=== PATIENT | female | born 1945 | race Caucasian/White ===

== ENCOUNTER 2023-04-25 09:19 | Outpatient (CLI) | payer BC ==
[~2023-04-25 09:19] MED LIST: AMI200T PO; AMLO10TA13 PO; APIX5TAB3 PO; LOSA100T58 PO; MELA1TAB52 PO; METO200T49 PO; THYROID MEDICATION PO
[2023-04-25 09:56] LABS: BASOPHILS # (AUTO) 0.1 X10'3 (0-0.2); BASOPHILS % (AUTO) 1.5 % (0-1); EOSINOPHILS # (AUTO) 0.2 X10'3 (0-0.9); EOSINOPHILS % (AUTO) 1.7 % (0-6); HEMATOCRIT 34.4 % (35.0-45.0); HEMOGLOBIN 11.4 g/dl (12.0-16.0); LYMPHOCYTES # (AUTO) 1.7 X10'3 (1.1-4.8); LYMPHOCYTES % (AUTO) 18.2 % (21-51); MEAN CORPUSCULAR HEMOGLOBIN 29.3 PG (27.0-31.0); MEAN CORPUSCULAR HGB CONC 33.2 g/dL (33.0-36.5); MEAN CORPUSCULAR VOLUME 88.3 FL (78-98); MONOCYTES # (AUTO) 0.8 X10'3 (0-0.9); MONOCYTES % (AUTO) 8.4 % (2-12); NEUTROPHILS # (AUTO) 6.6 X10'3 (1.8-7.7); NEUTROPHILS % (AUTO) 70.2 % (42-75); PLATELET COUNT 202 X10'3 (140-440); RED BLOOD COUNT 3.89 X10'6 (4.20-5.60); RED CELL DISTRIBUTION WIDTH 15.8 % (11.5-14.5); WHITE BLOOD COUNT 9.4 X10'3 (4.5-11.0)
[2023-04-25] MEDS ORDERED: iohexol 350MG/ML 100ml bottle IV ONE (10:03)
[2023-04-25 10:07] LABS: APTT 30 SECONDS (22-32); PROTHROMBIN TIME 10.9 SECONDS (9.0-12.0)
[2023-04-25 10:08] LABS: ALANINE AMINOTRANSFERASE 25 U/L (12-78); ALBUMIN 3.2 G/DL (3.4-5.0); ALBUMIN/GLOBULIN RATIO 0.8 (1.1-1.5); ALKALINE PHOSPHATASE 136 IU/L (46-116); ANION GAP 14 (8-16); ASPARTATE AMINO TRANSFERASE 19 U/L (10-37); BILIRUBIN,TOTAL 0.4 MG/DL (0.1-1.0); BLOOD UREA NITROGEN 48 MG/DL (7-18); BUN/CREATININE RATIO 15.3 (10.0-20.0); CALCIUM 9.4 MG/DL (8.5-10.1); CHLORIDE 106 MMOL/L (99-107); CREATININE 3.13 MG/DL (0.40-0.90); GLUCOSE 104 MG/DL (70-104); POTASSIUM 4.8 MMOL/L (3.5-5.1); SODIUM 142 MMOL/L (135-145); TOTAL CARBON DIOXIDE 21.9 MMOL/L (24-32); eGFR 14 ML/MIN
== END 2023-04-25 23:59 | disposition home or self-care (01) ==
LOC: RAD 09:19
PROVIDERS: ATTEND Student in an Organized Health Care Education/Training Program
DX: I48.91 Unspecified atrial fibrillation (principal); I48.92 Unspecified atrial flutter
CPT/HCPCS: 36415; 80053; 85025; 85610; 85730; J3490; Q9967

== ENCOUNTER 2024-01-17 08:30 | Inpatient (IN) | payer BC ==
[2024-01-11 12:44] LABS: BILIRUBIN,URINE NEGATIVE (Neg); CLARITY,URINE CLOUDY (Clear); COLOR,URINE STRAW (Yellow); GLUCOSE, URINE NEGATIVE (Neg); KETONES,URINE NEGATIVE (Neg); LEUKOCYTE ESTERASE ,URINE MODERATE (Neg); NITRITES, URINE POSITIVE (Neg); OCCULT BLOOD,URINE TRACE-INTACT (Neg); PROTEIN,URINE 100 mg/dl (Neg); UROBILINOGEN,URINE 0.2 E.U/dL (0.2-1.0)
[2024-01-11 12:45] LABS: BASOPHILS # (AUTO) 0.1 X10'3 (0-0.2); BASOPHILS % (AUTO) 0.9 % (0-1); EOSINOPHILS # (AUTO) 0.2 X10'3 (0-0.9); EOSINOPHILS % (AUTO) 3.3 % (0-6); LYMPHOCYTES # (AUTO) 1.9 X10'3 (1.1-4.8); LYMPHOCYTES % (AUTO) 24.5 % (21-51); MEAN CORPUSCULAR HEMOGLOBIN 29.3 PG (27.0-31.0); MEAN CORPUSCULAR HGB CONC 32.8 g/dL (33.0-36.5); MEAN CORPUSCULAR VOLUME 89.4 FL (78-98); MONOCYTES # (AUTO) 0.7 X10'3 (0-0.9); NEUTROPHILS # (AUTO) 4.7 X10'3 (1.8-7.7); NEUTROPHILS % (AUTO) 62.3 % (42-75); PRE OP HEMATOCRIT 35.7 % (35.0-45.0); PRE OP HEMOGLOBIN 11.7 g/dL (12.0-16.0); PRE OP PLATELET COUNT 223 X10'3 (140-440); PRE OP WHITE BLOOD COUNT 7.6 10'3 (4.8-10.8); RED BLOOD COUNT 3.99 X10'6 (4.20-5.60); RED CELL DISTRIBUTION WIDTH 16.2 % (11.5-14.5)
[2024-01-11 12:47] LABS: UA COLLECTION TYPE CLN CATCH MIDSTREAM
[2024-01-11 12:48] LABS: BACTERIA,URINE 3+ /HPF (Neg); MUCUS STRANDS NONE SEEN /LPF (Neg); RBC,URINE 0-2 /HPF (0-2); SQUAMOUS EPITHELIAL CELL,UR FEW /LPF (FEW); WBC CLUMPS,URINE MANY /HPF (NEGATIVE); WBC,URINE TNTC /HPF (0-4)
[2024-01-11 12:54] LABS: PRE OP PROTIME 10.8 SECONDS (9.0-12.0)
[2024-01-11 13:15] LABS: ALBUMIN 3.5 G/DL (3.4-5.0); ALBUMIN/GLOBULIN RATIO 0.9 (1.1-1.5); ALKALINE PHOSPHATASE 199 IU/L (46-116); BLOOD UREA NITROGEN 35 MG/DL (7-18); BUN/CREATININE RATIO 13.3 (10.0-20.0); CALCIUM 9.2 MG/DL (8.5-10.1); CHLORIDE 109 MMOL/L (99-107); CREATININE 2.63 MG/DL (0.40-0.90); PRE OP ALT 28 U/L (30-65); PRE OP ANION GAP 8 (8-16); PRE OP AST 18 U/L (10-37); PRE OP BILIRUB, TOTAL 0.4 MG/DL (0.0-1.0); PRE OP GLUCOSE 94 MG/DL (70-104); PRE OP POTASSIUM 4.6 MMOL/L (3.4-5.1); PRE OP SODIUM 143 MMOL/L (135-145); THYROID STIMULATING HORMONE 2.44 ulU/ml (0.34-4.50); TOTAL CARBON DIOXIDE 25.9 MMOL/L (24-32); TOTAL PROTEIN 7.6 G/DL (6.4-8.2); eGFR 18 ML/MIN
[2024-01-17] VITALS (35 sets, daily range): BP systolic 109–173; BP diastolic 49–131; PULSE 48–74; RESP 12–23; TEMP 97.3–98.4; O2SAT 92–99
[~2024-01-17] VITALS: Ht 165.1 cm; Wt 99.7 kg
[2024-01-17] MEDS: famotidine 20mg tablet PO ONE (05:30)
[~2024-01-17 08:30] MED LIST changes: -AMI200T PO; +AMLO-363 PO; -AMLO10TA13 PO; +APIX2.5T PO; -APIX5TAB3 PO; +COMPOUND PO; +FERR-116 PO; +FURO20TA4 PO; -LOSA100T58 PO; -METO200T49 PO; +MULT-1085 PO; +SUPER BEET; -THYROID MEDICATION PO; +[UNRECOGNIZED DRUG - OTHER]; +[UNRECOGNIZED DRUG - OTHER] PO; +[UNRECOGNIZED DRUG - REMARK]; +d-mannose; +vitamin c
[2024-01-17] MEDS: ringers solution, lacted 1,000 ML IV SCH ×2 (09:39→12:39)
[2024-01-17] MEDS: VANCOMYCIN 1,500MG inj. 1,500 MG in normal saline 500ml IV soln 300 ML IV ONE (09:39)
[2024-01-17] MEDS ORDERED: HYDROmorphone/PF 0.2 MG/ML SYRINGE IV PRN ×2 (10:15)
[2024-01-17] MEDS ORDERED: meperidine/PF 25mg/ml syringe IV PRN (10:15)
[2024-01-17] MEDS ORDERED: ondansetron/PF 4mg/2ml inj IV PRN ×2 (10:15→12:25)
[2024-01-17] MEDS ORDERED: morphine 2 MG/ML inj. syringe IV PRN (10:15)
[2024-01-17] MEDS ORDERED: iohexol 350MG/ML 100ml bottle IV ONE (11:17)
[2024-01-17] MEDS ORDERED: sevoflurane 250ml liquid IH ONE (11:17)
[2024-01-17] MEDS ORDERED: fentaNYL/PF 50MCG/1 ML 2ML syringe ONE (11:26)
[2024-01-17] MEDS ORDERED: midazolam 1 mg/ML 2ml injection ONE (11:26)
[2024-01-17] MEDS ORDERED: dexamethasone sod phosphate 4mg/ml inj. ONE (11:46)
[2024-01-17] MEDS ORDERED: propofol inj 20 ML IV ONE (11:46)
[2024-01-17] MEDS ORDERED: LIDOcaine 2% (20mg/ml) 5ml vial ONE (11:46)
[2024-01-17] MEDS ORDERED: ondansetron/PF 4mg/2ml inj ONE (11:46)
[2024-01-17] MEDS ORDERED: heparin 1,000unit/ml 10ml vial 0 ML ONE (11:50)
[2024-01-17] MEDS ORDERED: HEPARIN 1000 UNIT/ML ONE (12:04)
[2024-01-17] MEDS: normal saline 1000ml 1,000 ML IV SCH (12:25)
[2024-01-17] MEDS ORDERED: potassium Cl 40MEQ/270ML bag 250 ML IV PRN (12:25)
[2024-01-17] MEDS ORDERED: potassium Cl 40MEQ/1/2NS 520ml 520 ML IV PRN (12:25)
[2024-01-17] MEDS ORDERED: potassium CL 10mEq/100ml bag 100 ML IV PRN (12:25)
[2024-01-17] MEDS ORDERED: proCHLORperazine 10 MG/2 ml inj IV PRN (12:25)
[2024-01-17] MEDS ORDERED: acetaminophen 325mg tablet PO PRN (12:25)
[2024-01-17] MEDS ORDERED: ALPRAZolam 0.25mg tablet PO PRN (12:25)
[2024-01-17] MEDS ORDERED: potassium Cl 20mEq/100mL bag 100 ML IV PRN (12:25)
[2024-01-17] MEDS ORDERED: magnesium sulf-water 2g/50mL 50 ML IV PRN (12:25)
[2024-01-17] MEDS ORDERED: docusate sod 100mg capsule PO PRN (12:25)
[2024-01-17] MEDS ORDERED: labetalol 20mg/4ml (5mg/ml) syringe IV PRN (12:25)
[2024-01-17] MEDS ORDERED: magnesium sulf-water 4G/100mL 100 ML IV PRN (12:25)
[2024-01-17] MEDS ORDERED: diphenhydrAMINE 25mg capsule PO PRN (12:25)
[2024-01-17] MEDS ORDERED: pantoprazole 40mg Tablet.DR PO PRN (12:25)
[2024-01-17] MEDS ORDERED: potassium Cl 20 mEq SR tablet PO PRN (12:25)
[2024-01-17] MEDS ORDERED: HYDROcodone/acetaminophen 5mg/325mg tablet PO PRN (12:25)
[2024-01-17] MEDS: ondansetron/PF 4mg/2ml inj IV ONE (12:39)
[2024-01-17] MEDS: acetaminophen 1,000mg/100ml IV 100 ML IV ONE (12:43)
[2024-01-17] MEDS: morphine 4 MG/ML inj SYRINge IV PRN (12:58)
[2024-01-17] MEDS: pantoprazole 40 MG vial IV ONE (13:20)
[2024-01-17] MEDS: sod chloride 0.9% 10ml flush syringe IV SCH (16:47)
[2024-01-17] MEDS: VANCOMYCIN 1GM 200ML H20 (PEG) 200 ML IV SCH (20:12)
[2024-01-17] MEDS ORDERED: non-formulary drug (Melatonin 1 TAB) PO SCH (21:00)
[2024-01-18] VITALS (11 sets, daily range): BP systolic 134–157; BP diastolic 49–72; PULSE 42–82; RESP 15–18; TEMP 97.3–97.9; O2SAT 94–97
[2024-01-18] MEDS: hydrALAZINE 20mg/ml inj. IV PRN (06:16)
[2024-01-18 07:29] LABS: BASOPHILS % (AUTO) 0.4 % (0-1); EOSINOPHILS % (AUTO) 0.1 % (0-6); HEMATOCRIT 32.4 % (35.0-45.0); HEMOGLOBIN 10.4 g/dl (12.0-16.0); LYMPHOCYTES # (AUTO) 1.3 X10'3 (1.1-4.8); LYMPHOCYTES % (AUTO) 10.8 % (21-51); MEAN CORPUSCULAR HEMOGLOBIN 29.2 PG (27.0-31.0); MEAN CORPUSCULAR HGB CONC 32.1 g/dL (33.0-36.5); MEAN PLATELET VOLUME 8.3 FL (7.4-10.4); MONOCYTES # (AUTO) 0.9 X10'3 (0-0.9); MONOCYTES % (AUTO) 8.1 % (2-12); NEUTROPHILS # (AUTO) 9.4 X10'3 (1.8-7.7); NEUTROPHILS % (AUTO) 80.6 % (42-75); PLATELET COUNT 174 X10'3 (140-440); RED BLOOD COUNT 3.56 X10'6 (4.20-5.60); RED CELL DISTRIBUTION WIDTH 16.4 % (11.5-14.5); WHITE BLOOD COUNT 11.7 X10'3 (4.5-11.0)
[2024-01-18] MEDS: [UNRECOGNIZED DRUG - OTHER] PO SCH (07:37)
[2024-01-18 07:39] LABS: INR 1.1 INR; PROTHROMBIN TIME 11.1 SECONDS (9.0-12.0)
[2024-01-18 07:52] LABS: ALANINE AMINOTRANSFERASE 23 U/L (12-78); ALBUMIN 2.8 G/DL (3.4-5.0); ALBUMIN/GLOBULIN RATIO 0.8 (1.1-1.5); ALKALINE PHOSPHATASE 162 IU/L (46-116); ANION GAP 8 (8-16); ASPARTATE AMINO TRANSFERASE 19 U/L (10-37); BILIRUBIN,TOTAL 0.4 MG/DL (0.1-1.0); BLOOD UREA NITROGEN 40 MG/DL (7-18); BUN/CREATININE RATIO 16.4 (10.0-20.0); CALCIUM 8.8 MG/DL (8.5-10.1); CHLORIDE 113 MMOL/L (99-107); CREATININE 2.44 MG/DL (0.40-0.90); GLUCOSE 122 MG/DL (70-104); MAGNESIUM 2.4 MG/DL (1.5-2.4); PRO BRAIN NATRIURETIC PEPTIDE 3375 PG/ML (0-450); SODIUM 144 MMOL/L (135-145); TOTAL CARBON DIOXIDE 22.6 MMOL/L (24-32); TOTAL PROTEIN 6.5 G/DL (6.4-8.2); eCRCL 17 ML/MIN; eGFR 19 ML/MIN
[2024-01-18] MEDS: HYDROchlorothiazide 25mg tablet PO SCH (08:00)
[2024-01-18] MEDS: multivitamins, therapeutics tablet PO SCH (08:59)
[2024-01-18] MEDS: losartan 50mg tablet PO SCH (08:59)
[2024-01-18] MEDS: amLODIPine 5mg tablet PO SCH (09:00)
[2024-01-18] MEDS: ferrous sulfate 325mg tablet PO SCH (09:00)
[2024-01-18] MEDS: furosemide 20MG tablet PO SCH (09:00)
[2024-01-18] MEDS: apixaban 2.5mg tablet PO SCH (09:01)
[2024-01-18] MEDS ORDERED: APIX2.5T PO (12:31)
== END 2024-01-18 13:52 | disposition home or self-care (01) | DRG 274 ==
LOC: PAS IN 08:30 → PCU 3S 14:30
PROVIDERS: ADMIT Student in an Organized Health Care Education/Training Program; ATTEND Student in an Organized Health Care Education/Training Program
PROC: B24BZZ4 Ultrasonography of Heart with Aorta, Transesophageal (ICD-10-PCS; 2024-01-17)
PROC: 02L73DK Occlusion of Left Atrial Appendage with Intraluminal Device, Percutaneous Approach (ICD-10-PCS; principal; 2024-01-17 11:17)
DX: I48.91 Unspecified atrial fibrillation (principal); Z00.6 Encounter for examination for normal comparison and control in clinical research program; I10 Essential (primary) hypertension; E03.9 Hypothyroidism, unspecified; Z88.0 Allergy status to penicillin; Z88.2 Allergy status to sulfonamides; Z88.8 Allergy status to other drugs, medicaments and biological substances
CPT/HCPCS: 33340; 36415; 71045; 71046; 76937; 80053; 81001; 82948; 83735; 83880; 84443; 85025; 85347; 85610; 85730; 86885; 86900; 86901; 86920; 87077; 87081; 87088; 87186; 93005; 93308; 93312; 93325; A4615; A4618; A6258; A6449; C1758; C1760; C1889; C1893; C1894; G0378; J0131; J0360; J1100; J1644; J2003; J2250; J2270; J2405; J2470; J2704; J3010; J3370; J3372; J7030; J7040; J7120; Q9967

== ENCOUNTER 2024-01-19 17:59 | Emergency (ER) | payer BC ==
[~2024-01-19] VITALS: Ht 165.1 cm; Wt 100.0 kg
[2024-01-19 18:34] LABS: BASOPHILS # (AUTO) 0.1 X10'3 (0-0.2); BASOPHILS % (AUTO) 0.9 % (0-1); EOSINOPHILS # (AUTO) 0.3 X10'3 (0-0.9); EOSINOPHILS % (AUTO) 3.1 % (0-6); HEMATOCRIT 37.2 % (35.0-45.0); HEMOGLOBIN 11.8 g/dl (12.0-16.0); LYMPHOCYTES # (AUTO) 1.8 X10'3 (1.1-4.8); LYMPHOCYTES % (AUTO) 18.2 % (21-51); MEAN CORPUSCULAR HEMOGLOBIN 28.9 PG (27.0-31.0); MEAN CORPUSCULAR HGB CONC 31.8 g/dL (33.0-36.5); MEAN CORPUSCULAR VOLUME 90.9 FL (78-98); MEAN PLATELET VOLUME 8.2 FL (7.4-10.4); MONOCYTES % (AUTO) 9.9 % (2-12); NEUTROPHILS # (AUTO) 6.8 X10'3 (1.8-7.7); NEUTROPHILS % (AUTO) 67.9 % (42-75); PLATELET COUNT 170 X10'3 (140-440); RED BLOOD COUNT 4.09 X10'6 (4.20-5.60); RED CELL DISTRIBUTION WIDTH 16.6 % (11.5-14.5); WHITE BLOOD COUNT 10.1 X10'3 (4.5-11.0)
[2024-01-19 18:53] LABS: ALANINE AMINOTRANSFERASE 45 U/L (12-78); ALBUMIN 3.4 G/DL (3.4-5.0); ALBUMIN/GLOBULIN RATIO 0.9 (1.1-1.5); ALKALINE PHOSPHATASE 211 IU/L (46-116); ANION GAP 9 (8-16); ASPARTATE AMINO TRANSFERASE 37 U/L (10-37); BILIRUBIN,TOTAL 0.4 MG/DL (0.1-1.0); BLOOD UREA NITROGEN 42 MG/DL (7-18); CALCIUM 8.9 MG/DL (8.5-10.1); CHLORIDE 112 MMOL/L (99-107); CREATININE 2.63 MG/DL (0.40-0.90); GLUCOSE 108 MG/DL (70-104); POTASSIUM 4.4 MMOL/L (3.5-5.1); SODIUM 143 MMOL/L (135-145); TOTAL CARBON DIOXIDE 21.6 MMOL/L (24-32); TOTAL PROTEIN 7.4 G/DL (6.4-8.2); eCRCL 16 ML/MIN; eGFR 18 ML/MIN
[2024-01-19 19:01] LABS: PRO BRAIN NATRIURETIC PEPTIDE 3682 PG/ML (0-450)
[2024-01-19] MEDS: hydrALAZINE 20mg/ml inj. IV ONE (19:58)
[2024-01-19] MEDS: furosemide 10 MG/1 ML 10ml inj IV ONE (19:58)
[2024-01-19 21:20] VITALS: TEMP 97.7
[2024-01-19 21:22] LABS: BILIRUBIN,URINE NEGATIVE (Neg); CLARITY,URINE CLOUDY (Clear); COLOR,URINE YELLOW (Yellow); GLUCOSE, URINE NEGATIVE (Neg); KETONES,URINE NEGATIVE (Neg); LEUKOCYTE ESTERASE ,URINE SMALL (Neg); NITRITES, URINE NEGATIVE (Neg); OCCULT BLOOD,URINE MODERATE (Neg); PROTEIN,URINE 100 mg/dl (Neg); UROBILINOGEN,URINE 0.2 E.U/dL (0.2-1.0)
[2024-01-19 21:29] LABS: UA COLLECTION TYPE STRAIGHT CATH
[2024-01-19 21:30] VITALS: BP_DIAS 83; RESP 16; O2SAT 96
[2024-01-19 21:30] LABS: SQUAMOUS EPITHELIAL CELL,UR FEW /LPF (FEW); YEAST MODERATE /HPF (NEGATIVE)
[2024-01-19 21:31] LABS: BACTERIA,URINE FEW /HPF (Neg); MUCUS STRANDS NONE SEEN /LPF (Neg); RBC,URINE 50-100 /HPF (0-2); WBC CLUMPS,URINE FEW /HPF (NEGATIVE); WBC,URINE 30-50 /HPF (0-4)
[2024-01-19 21:39] VITALS: BP_SYST 198; PULSE 69
[2024-01-19] MEDS: hyDRALAzine 10mg tablet PO ONE (21:39)
== END 2024-01-19 21:58 | disposition home or self-care (01) ==
LOC: ER 18:00
DX: I48.91 Unspecified atrial fibrillation (principal); I50.9 Heart failure, unspecified; Z88.0 Allergy status to penicillin; Z88.2 Allergy status to sulfonamides; Z88.1 Allergy status to other antibiotic agents; Z88.8 Allergy status to other drugs, medicaments and biological substances; Z79.01 Long term (current) use of anticoagulants
CPT/HCPCS: 36415; 71045; 80053; 81001; 83880; 84484; 85025; 93005; 96374; 99291; J1940; 99285; C1758; J0360

== ENCOUNTER 2024-03-04 10:27 | Day surgery (SDC) | payer BC ==
[2024-03-04] VITALS (14 sets, daily range): BP systolic 134–207; BP diastolic 56–90; PULSE 50–76; RESP 12–20; TEMP 99; O2SAT 94–100
[~2024-03-04] VITALS: Ht 165.1 cm; Wt 100.9 kg
[~2024-03-04 10:27] MED LIST changes: -APIX2.5T PO; -FERR-116 PO; -MULT-1085 PO; -[UNRECOGNIZED DRUG - OTHER]
[2024-03-04] MEDS ORDERED: APIX2.5T PO (10:54)
[2024-03-04] MEDS ORDERED: FERR325T28 PO (10:56)
[2024-03-04 11:16] LABS: BASOPHILS % (AUTO) 0.5 % (0-1); EOSINOPHILS # (AUTO) 0.1 X10'3 (0-0.9); EOSINOPHILS % (AUTO) 1.5 % (0-6); HEMATOCRIT 32.2 % (35.0-45.0); HEMOGLOBIN 10.5 g/dl (12.0-16.0); LYMPHOCYTES # (AUTO) 1.3 X10'3 (1.1-4.8); LYMPHOCYTES % (AUTO) 19.2 % (21-51); MEAN CORPUSCULAR HEMOGLOBIN 28.7 PG (27.0-31.0); MEAN CORPUSCULAR HGB CONC 32.6 g/dL (33.0-36.5); MEAN PLATELET VOLUME 7.8 FL (7.4-10.4); MONOCYTES # (AUTO) 0.6 X10'3 (0-0.9); NEUTROPHILS # (AUTO) 4.6 X10'3 (1.8-7.7); NEUTROPHILS % (AUTO) 69.8 % (42-75); PLATELET COUNT 176 X10'3 (140-440); RED BLOOD COUNT 3.66 X10'6 (4.20-5.60); RED CELL DISTRIBUTION WIDTH 15.7 % (11.5-14.5); WHITE BLOOD COUNT 6.6 X10'3 (4.5-11.0)
[2024-03-04 11:33] LABS: APTT 28 SECONDS (22-32); PROTHROMBIN TIME 10.9 SECONDS (9.0-12.0)
[2024-03-04 11:37] LABS: ALBUMIN 3.3 G/DL (3.4-5.0); ANION GAP 11 (8-16); BLOOD UREA NITROGEN 35 MG/DL (7-18); BUN/CREATININE RATIO 16.8 (10.0-20.0); CALCIUM 9.3 MG/DL (8.5-10.1); CHLORIDE 109 MMOL/L (99-107); CREATININE 2.08 MG/DL (0.40-0.90); GLUCOSE 97 MG/DL (70-104); POTASSIUM 4.1 MMOL/L (3.5-5.1); SODIUM 143 MMOL/L (135-145); TOTAL CARBON DIOXIDE 23.5 MMOL/L (24-32); eCRCL 20 ML/MIN; eGFR 23 ML/MIN
[2024-03-04] MEDS: MIDAZolam 1mg/ml 10ml vial IV ONE (13:07)
[2024-03-04] MEDS: normal saline 1000ml 1,000 ML IV SCH (13:08)
[2024-03-04] MEDS: fentaNYL/PF 50MCG/1 ML 2ML syringe IV ONE (13:08)
[2024-03-04] MEDS ORDERED: CLOP-32 PO (13:23)
[2024-03-04] MEDS ORDERED: ASPI-1265 PO (13:23)
== END 2024-03-04 14:20 | disposition home or self-care (01) ==
LOC: SSTAY O 10:27
PROVIDERS: ATTEND Student in an Organized Health Care Education/Training Program
DX: I48.91 Unspecified atrial fibrillation (principal); I12.9 Hypertensive chronic kidney disease with stage 1 through stage 4 chronic kidney disease, or unspecified chronic kidney disease; N18.9 Chronic kidney disease, unspecified; I34.0 Nonrheumatic mitral (valve) insufficiency; G47.30 Sleep apnea, unspecified; Z93.2 Ileostomy status
CPT/HCPCS: 36415; 80048; 85025; 85610; 85730; 93312; 93325; J2250; J3010; J7030